=== PATIENT | female | born 1955 | race Caucasian/White ===

== ENCOUNTER → 2017-10-06 15:45 | Outpatient (CLI) | payer SELFPAY ==
--- NOTE | 2017-10-06 15:47 | RAD_ITS ---
STUDY: X-RAY - LEFT KNEE REASON FOR EXAM: Left knee pain, no specific injury. TECHNIQUE: 4 view(s) of the knee. COMPARISON: None. FINDINGS: Normal visualized distal femur. Normal visualized proximal tibia and fibula. Normal proximal tibiofibular articulation. There is arthrosis of the medial femorotibial compartment with marginal osteophytes and joint space narrowing. Normal lateral femorotibial compartment. There is mild arthrosis of the patellofemoral articulation with small marginal osteophytes and mild joint space narrowing. There is a posterior intra-articular body. RAD/Knee 4 or More Views IMPRESSION: Arthrosis of the medial femorotibial and patellofemoral compartments. Posterior intra-articular body. Electronically Signed: Magdiel Sanchez MD at 16:13 EST Tel , Service support ,
== END ==
PROVIDERS: Visit Provider Orthopaedic Surgery
DX: M25.562 Pain in left knee (principal)
CPT/HCPCS: 73564

== ENCOUNTER → 2023-05-23 | Outpatient (CLI) | payer MEDICARE, SELFPAY ==
--- NOTE | 2023-05-23 14:28 | VDLE_ITS ---
Reason For Study: Swelling BLE RIGHT LEFT CFV is compressible, spontaneous, phasic, CFV is compressible, spontaneous, phasic, competent and demonstrates normal competent, and demonstrates normal augmentation. augmentation. FV is compressible, spontaneous, phasic, FV is compressible, spontaneous, phasic, competent and demonstrates normal competent and demonstrates normal augmentation. augmentation. POP V is compressible, spontaneous, phasic, POP V is compressible, spontaneous, phasic, competent and demonstrates normal competent and demonstrates normal augmentation. augmentation. T/P Trunk is compressible. T/P Trunk is compressible. PTV is compressible. PTV is compressible. RT PerV is compressible. LT PerV is compressible. SFJ is competent and measures 1.07cm x 1.18 SFJ is competent and measures 0.65cm x 0.57 cm. cm. GSV proximal thigh measures 1.01cm x 0.93 cm. GSV proximal thigh measures 0.48cm x 0.50 cm. GSV at knee measures 0.85cm x 0.79 cm. GSV at knee measures 0.35cm x 0.37 cm. GSV INCOMPETENT throughout for greater than GSV INCOMPETENT throughout for greater than 0.5 seconds. 0.5 seconds. SSV proximal calf is competent and measures SSV proximal calf is competent and measures 0.46cm x 0.45 cm. 0.37cm x 0.36 cm. ASV proximal calf is INCOMPETENT for greater than 0.5 seconds and measures 0.49cm x 0.50 cm. Rt GSV at distal thigh has chronic SVT. Procedure This is a venous duplex using B-mode, color flow and spectral Doppler. Exam performed in department. A preliminary report was called and/or faxed to Geraldine WELDON. VL/Venous Duplex US - Jose Extrem Interpretation Summary Chronic superficial vein thrombosis is noted in the right great saphenous vein. Deep veins of the bilateral lower extremities are patent and compressible segme ntally. There is no evidence of bilateral lower extremity deep vein thrombosis. The left great saphenous vein appears patent and compressible segmentally. Positive for reflux in the right great saphenous vein, accessory saphenous vein Positive for reflux in the left great saphenous vein Ordering Physician: Geraldine Kimball Referring Physician: Danielle Rosario Performed By: Asya Ramirez, SCOTT, RVT
== END | disposition home or self-care (01) ==
PROVIDERS: PCP Internal Medicine; Referring Provider Physician Assistant; Visit Provider Physician Assistant
DX: I83.893 Varicose veins of bilateral lower extremities with other complications (principal); I82.811 Embolism and thrombosis of superficial veins of right lower extremity
CPT/HCPCS: 93970